=== PATIENT | female | born 1950 | race Caucasian/White ===

== ENCOUNTER → 2017-01-16 | Outpatient (CLI) | payer OTHER, MEDICARE ==
[~2017-01-16] MED LIST: ASPIR-LOW81 MG PO; CALTRATE 600600 MG PO; CHONDROITIN COM1 CAP PO; FEMHRT; GLUCOSAMINE PO; MVI; Z-BEC1 TAB PO; [UNRECOGNIZED DRUG - OTHER]; multivit
== END ==
LOC: MC.RAD 01-02 13:40
DX: Z12.31 Encounter for screening mammogram for malignant neoplasm of breast (principal)

== ENCOUNTER → 2018-02-12 | Outpatient (CLI) | payer OTHER, MEDICARE | LOC: MC.RAD 10:18 | DX: Z12.31 Encounter for screening mammogram for malignant neoplasm of breast (principal) ==

== ENCOUNTER → 2019-02-22 | Outpatient (CLI) | payer MEDICARE, OTHER | LOC: MC.RAD 09:45 | DX: Z12.31 Encounter for screening mammogram for malignant neoplasm of breast (principal) ==

== ENCOUNTER → 2019-02-26 | Outpatient (CLI) | payer MEDICARE, OTHER | LOC: MC.RAD 08:45 | DX: N60.02 Solitary cyst of left breast (principal) ==

== ENCOUNTER → 2020-03-16 | Outpatient (CLI) | payer MEDICARE, OTHER | LOC: MC.RAD 14:00 | DX: Z12.31 Encounter for screening mammogram for malignant neoplasm of breast (principal) ==

== ENCOUNTER → 2021-04-27 | Outpatient (CLI) | payer MEDICARE, OTHER ==
[~2021-04-27] MED LIST changes: -ASPIR-LOW81 MG PO; +ASPIRIN 81M81 MG/TA2 PO; +B COMPLEX #11 TA1 PO; -CALTRATE 600600 MG PO; +CALTRATE-600 W600 MG PO; -FEMHRT; +FEMHRT LOW DOSE PO; +FLONASEALLERGY NS; +GINKGO3 PO; +LUTEIN20 M1 PO; +MAGNESIUM250 M1 PO; +OCUVITE1 TA1 PO; +PROAIR HFA0.09 MG/AC IH; +QUERCETIN1 POW PO; +ROXICODONE 55 MG/TAB PO; +VITAMIN C500 MG PO; +VITAMIND3 5000 PO; +WOMEN'S DAILY1 TAB PO
== END ==
LOC: MC.RAD 03-17 11:30
DX: Z12.31 Encounter for screening mammogram for malignant neoplasm of breast (principal)

== ENCOUNTER 2021-05-20 20:31 | Emergency (ER) | payer MEDICARE, OTHER ==
[~2021-05-20] VITALS: Ht 167.6 cm; Wt 61.4 kg
[~2021-05-20 20:31] MED LIST changes: -B COMPLEX #11 TA1 PO; -FLONASEALLERGY NS; -GINKGO3 PO; -LUTEIN20 M1 PO; -MAGNESIUM250 M1 PO; -OCUVITE1 TA1 PO; -PROAIR HFA0.09 MG/AC IH; -QUERCETIN1 POW PO; -ROXICODONE 55 MG/TAB PO; -VITAMIN C500 MG PO; -VITAMIND3 5000 PO; -WOMEN'S DAILY1 TAB PO
[2021-05-20 20:44] VITALS: TEMP 97
[2021-05-20 22:57] VITALS: BP 105/77; PULSE 65
== END 2021-05-20 22:57 | disposition home or self-care (01) ==
LOC: COL.ER 20:31
DX: S52.572A Other intraarticular fracture of lower end of left radius, initial encounter for closed fracture (principal); W01.0XXA Fall on same level from slipping, tripping and stumbling without subsequent striking against object, initial encounter

== ENCOUNTER 2021-05-27 07:23 | Day surgery (SDC) | payer MEDICARE, OTHER ==
[~2021-05-27] VITALS: Ht 169.5 cm; Wt 65.6 kg
[2021-05-27 08:06] VITALS: BP 135/90; PULSE 84; TEMP 97.9
[2021-05-27] MEDS ORDERED: WOMEN'S DAILY1 TAB PO (08:10)
[2021-05-27] MEDS ORDERED: B COMPLEX #11 TA1 PO (08:11)
[2021-05-27] MEDS ORDERED: LUTEIN20 M1 PO (08:11)
[2021-05-27] MEDS ORDERED: MAGNESIUM250 M1 PO (08:12)
[2021-05-27] MEDS ORDERED: VITAMIND3 5000 PO (08:12)
[2021-05-27] MEDS ORDERED: FLONASEALLERGY NS (08:13)
[2021-05-27] MEDS ORDERED: ROXICODONE 55 MG/TAB PO (08:13)
[2021-05-27] MEDS ORDERED: GINKGO3 PO (08:14)
[2021-05-27] MEDS ORDERED: PROAIR HFA0.09 MG/AC IH (08:14)
[2021-05-27] MEDS ORDERED: VITAMIN C500 MG PO (08:16)
[2021-05-27] MEDS ORDERED: OCUVITE1 TA1 PO (08:21)
[2021-05-27] MEDS ORDERED: QUERCETIN1 POW PO (08:27)
[2021-05-27 10:28] VITALS: BP 122/78; PULSE 77; TEMP 97
--- NOTE | 2021-05-27 10:28 | NUR ---
The patient appears very drowsy and came straight back from the operating room at this time. The patient has an oral airway in place and PANDA Mcneil stayed at the patient's bedside until the airway was removed. Post operative vital signs were started at this time. The patient's dressing to her left arm appears clean, dry and intact. The patient has a sling in place to her left arm. Call light is within reach. Will continue to monitor the patient.
[2021-05-27 10:43] VITALS: BP 126/74; PULSE 67
--- NOTE | 2021-05-27 10:43 | NUR ---
The patient appears more alert and was weaned to room air at this time. The patient agrees to try some sprite and wheat toast at this time. Call light remains within reach. Will continue to monitor the patient.
[2021-05-27 10:58] VITALS: BP 124/77; PULSE 71
--- NOTE | 2021-05-27 10:58 | NUR ---
The patient appears to be tolerating the food and drink well. Vital signs appear stable. The patient denies any further needs at this time. Will continue to monitor the patient.
[2021-05-27 11:13] VITALS: BP 136/88; PULSE 77
--- NOTE | 2021-05-27 11:13 | NUR ---
The patient ambulated to the bathroom with the stand by assistance of one nurse and appeared to tolerate the activity well. The patient voided without difficulty and voices a desire to be discharged home. The nurse assisted the patient to get dressed and her INT was removed with a pressure dressing applied.
--- NOTE | 2021-05-27 11:35 | NUR ---
Discharge instructions were reviewed with the patient at this time. She verbalized undertanding and has no questions for the nurse at this time. The patient's friend was notified of the patient's ability to be discharged and is going to pull the car up to the patient entrance.
--- NOTE | 2021-05-27 11:45 | NUR ---
The patient was escorted out via wheelchair to a private vehicle by JOSEF Shepherd. The patient's belongings and discharge paperwork were sent with her. The patient's friend, Concepcion, is present to drive her home.
== END 2021-05-27 11:45 | disposition home or self-care (01) ==
LOC: SDCO 07:23
DX: S52.612A Displaced fracture of left ulna styloid process, initial encounter for closed fracture (principal); M19.90 Unspecified osteoarthritis, unspecified site; Z79.891 Long term (current) use of opiate analgesic; Z79.82 Long term (current) use of aspirin; Z79.899 Other long term (current) drug therapy; Z83.3 Family history of diabetes mellitus
CPT/HCPCS: C1713; J2250; J2704; J2795; J7120

== ENCOUNTER 2021-08-27 09:30 | Emergency (ER) | payer MEDICARE, OTHER ==
[~2021-08-27] VITALS: Ht 170.2 cm; Wt 61.4 kg
[~2021-08-27 09:30] MED LIST changes: +B COMPLEX #11 TA1 PO; +FLONASEALLERGY NS; +GINKGO3 PO; +LUTEIN20 M1 PO; +MAGNESIUM250 M1 PO; +OCUVITE1 TA1 PO; +PROAIR HFA0.09 MG/AC IH; +QUERCETIN1 POW PO; +ROXICODONE 55 MG/TAB PO; +VITAMIN C500 MG PO; +VITAMIND3 5000 PO; +WOMEN'S DAILY1 TAB PO
[2021-08-27 11:54] LABS: BASO % 0.5 % (0.0-2.0); GRAN # 1.1 K/mm3 (1.4-6.5); GRAN % 54.8 % (42.2-75.2); HEMATOCRIT 37.9 % (37.0-47.0); LYMPH # 0.7 K/mm3 (1.2-3.4); MEAN CELL VOLUME 84 fl (80.0-100.0); MEAN CORPUSCULAR HEMOGLOBIN 27 pg (27-31); MEAN CORPUSCULAR HGB CONC 32 g/dl (33.0-37.0); MEAN PLATELET VOLUME 10.9 fl (7.4-10.4); MONO # 0.2 K/mm3 (0.1-0.6); MONO % 11.2 % (1.7-9.3); PLATELET COUNT 160 K/mm3 (130-400); REDCELL DISTRIBUTION WIDTH-CV 13.4 % (11.5-14.5)
[2021-08-27 11:59] LABS: ALBUMIN 3.6 gm/dL (3.4-4.8); BILIRUBIN,TOTAL 0.3 mg/dL (0.2-1.2); CALCIUM 8.4 mg/dL (8.4-10.2); CREATININE, serum 1.06 mg/dL (0.57-1.11); TOTAL PROTEIN 6.3 gm/dL (6.2-8.1)
[2021-08-27] MEDS ORDERED: K-TAB20 PO (13:33)
[2021-08-27] MEDS ORDERED: ZOFRAN ODT4 MG PO (14:11)
[2021-08-27 14:15] VITALS: BP 140/87; PULSE 97; TEMP 100.5
== END 2021-08-27 15:06 | disposition home or self-care (01) ==
LOC: COL.ER 09:30 → EDBEDREQ 13:07 → COL.ER 15:06
PROVIDERS: Nurse Practitioner
DX: U07.1 COVID-19 (principal); E87.6 Hypokalemia; Z88.0 Allergy status to penicillin; Z88.1 Allergy status to other antibiotic agents; Z88.2 Allergy status to sulfonamides
CPT/HCPCS: J2405; J7030; Q0247

== ENCOUNTER 2021-08-30 10:30 | Outpatient (CLI) | payer MEDICARE, OTHER ==
[~2021-08-30] VITALS: Ht 170.2 cm; Wt 66.8 kg
[~2021-08-30 10:30] MED LIST changes: +K-TAB20 PO; +ZOFRAN ODT4 MG PO
[2021-08-30 10:34] VITALS: BP 123/82; PULSE 77; TEMP 97.4
[2021-08-30 10:36] LABS: BASO % 0.6 % (0.0-2.0); EOS # 0.1 K/mm3 (0.0-0.7); GRAN # 3.5 K/mm3 (1.4-6.5); GRAN % 65.7 % (42.2-75.2); HEMATOCRIT 39.3 % (37.0-47.0); LYMPH # 1.1 K/mm3 (1.2-3.4); LYMPH % 21.3 % (20.0-51.0); MEAN CELL VOLUME 82 fl (80.0-100.0); MEAN CORPUSCULAR HEMOGLOBIN 27 pg (27-31); MEAN CORPUSCULAR HGB CONC 33 g/dl (33.0-37.0); MEAN PLATELET VOLUME 10.8 fl (7.4-10.4); MONO # 0.6 K/mm3 (0.1-0.6); PLATELET COUNT 208 K/mm3 (130-400); REDCELL DISTRIBUTION WIDTH-CV 13.3 % (11.5-14.5)
[2021-08-30] MEDS ORDERED: IMODIUM 2MG CAPS2 MG PO (10:40)
[2021-08-30] MEDS ORDERED: MELATONIN5 M1 SL (10:41)
[2021-08-30 10:47] VITALS: BP 126/82; PULSE 75
[2021-08-30 10:51] LABS: ALBUMIN 3.5 gm/dL (3.4-4.8); BILIRUBIN,TOTAL 0.4 mg/dL (0.2-1.2); CALCIUM 8.9 mg/dL (8.4-10.2); CREATININE, serum 0.92 mg/dL (0.57-1.11); POTASSIUM 3.3 mmol/L (3.5-4.5); TOTAL PROTEIN 6.8 gm/dL (6.2-8.1)
[2021-08-30 11:30] VITALS: BP 136/84; PULSE 69
[2021-08-30 12:20] VITALS: BP 139/94; PULSE 74
--- NOTE | 2021-08-30 12:20 | NUR ---
Nausea improved following IV zofran. Pt tolerates sips of water and earnest cracker. She is steady on feet in room. She has been up to restroom x3, passing small amounts of loose stool each time. Labs were called to Dr. Dae Moncada's nurse. Pt states she feels she is feeling well enough to go home at this time. INT DC'd with catheter intact. She is assisted out to ED entrance by wheelchair, and walks with steady gait to her car.
== END 2021-08-30 15:32 | disposition home or self-care (01) ==
LOC: EUO 10:30
PROVIDERS: Family Medicine
DX: U07.1 COVID-19 (principal)
CPT/HCPCS: J2405; J7030

== ENCOUNTER → 2022-05-10 | Outpatient (CLI) | payer MEDICARE, OTHER ==
[~2022-05-10] MED LIST changes: +IMODIUM 2MG CAPS2 MG PO; +MELATONIN5 M1 SL
== END ==
LOC: MC.RAD 11:15
DX: Z12.31 Encounter for screening mammogram for malignant neoplasm of breast (principal)

== ENCOUNTER → 2023-05-11 | Outpatient (CLI) | payer MEDICARE, OTHER | LOC: CANSCHCLI → MC.RAD 10:29 | DX: Z12.31 Encounter for screening mammogram for malignant neoplasm of breast (principal) ==